=== PATIENT | male | born 1995 ===

== ENCOUNTER 2017-10-02 10:03 | Emergency (ER) | payer OTHER ==
[2017-10-02 10:10] VITALS: BP 117/74; PULSE 50; RESP 16; TEMP 97.5; O2SAT 99
--- NOTE | 2017-10-02 10:40 | C.PDOC ---
History Of Present Illness 22 y/o M c no PMHx p/w back pain x 3 months. Pain is constant, across lower back , worse when sitting for a long time, sometimes severe, nonradiating. Denies fever, chills, weight loss, sweating, cough, nausea, vomiting, numbness, weakness, urinary or bowel incontinence or retention, recent surgery or procedures. Time Seen by Provider: 10/02/17 10:11 Chief Complaint (Nursing): Back Pain Past Medical History Vital Signs: Last Vital Signs Temp 97.5 F L 10/02/17 10:06 Pulse 50 L 10/02/17 10:06 Resp 16 10/02/17 10:06 BP 117/74 10/02/17 10:06 Pulse Ox 99 10/02/17 10:43 Family History: States: No Known Family Hx - Social History Hx Alcohol Use: No Hx Substance Use: No - Immunization History Hx Tetanus Toxoid Vaccination: No Hx Influenza Vaccination: No Hx Pneumococcal Vaccination: No Review Of Systems Except As Marked, All Systems Reviewed And Found Negative. Constitutional: Negative for: Fever Respiratory: Negative for: Shortness of Breath Physical Exam - Physical Exam Additional Physical Exam Comments: Gen: NAD Head: NC/AT Eyes: No scleral icterus ENT: MMM Neck: No midline tenderness, FROM CV: Radial pulses 2+ bilaterally Lungs: CTA b/l Abd: Soft, NT Back: Lumbar midline and bilateral tenderness without deformity Skin: No rash Neuro: Alert. Moves all extremities 5/5 strength, sensation to light touch intact in bilateral lower legs. ED Course And Treatment O2 Sat by Pulse Oximetry: 99 - Other Rad No standard instances Interpretation: Accession No. : [id number]. Patient Name / ID : IVET REYNOLDS DANIELLA / [id number]. Exam Date : 10/02/2017 10:46:00 ( Approved ). Study Comment : Sex / Age : M / 22Y. Creator : Maria Teresa Thompson MD. Dictator : Maria Teresa Thompson MD. Ed Special Education Teacher : Intelligence Operations Specialist : Maria Teresa Thompson MD. Approver2 : Report Date : 10/02/2017 10:54:52. My Comment : . PROCEDURE: Radiographs of the Lumbar Spine. HISTORY: back pain. COMPARISON: No prior. FINDINGS: BONES: Normal alignment. No listhesis. No fracture. DISC SPACES: Unremarkable. OTHER FINDINGS: None. IMPRESSION: No evidence of acute pathology. Medical Decision Making Medical Decision Making: Used christmas bell ringer [id number]. Patient instructed to f/u with clinic, possible MRI for this pain of 3 months. Disposition - Disposition Referrals: [facility] [Outside] Disposition: HOME/ ROUTINE Disposition Time: 10:57 Condition: STABLE Prescriptions: Famotidine [Pepcid] 1 tab PO BID #14 tab Ibuprofen [Motrin] 600 mg PO Q6 #25 tab Instructions: Low Back Pain (DC) Forms: [employer] ([place]an) Print Language: TELUGU - Clinical Impression Clinical Impression: Low back pain
--- NOTE | 2017-10-02 10:56 | RAD ---
PROCEDURE: Radiographs of the Lumbar Spine. HISTORY: back pain COMPARISON: No prior. FINDINGS: BONES: Normal alignment. No listhesis. No fracture. DISC SPACES: Unremarkable. OTHER FINDINGS: None. IMPRESSION: No evidence of acute pathology.
== END 2017-10-02 11:05 | disposition home or self-care (01) ==
LOC: C.ER 10:03
DX: M54.5 Low back pain (principal)
CPT/HCPCS: 72100; 96372; 99284; J1885

== ENCOUNTER 2017-12-08 10:52 | Emergency (ER) | payer OTHER ==
[2017-12-08 11:04] VITALS: BMI 23.2
--- NOTE | 2017-12-08 11:59 | C.PDOC ---
History Of Present Illness 22 yo male come in for evaluation of Left sided lower back pain intermittent " since March 2017". Pt sts, pain was localized and now radiating down to Left leg, associated intermittent tingling lateral left thigh. Otherwise, pt denies known direct trauma or injury, fever, chills, abd. pain, V/D, UTI sx, saddle anesthesia, incontinence, denies weakness, sensory or vascular deficits to B/L LEs. Ambulate to Ed for evaluation, not in any apparent distress. Time Seen by Provider: 12/08/17 11:17 Chief Complaint (Nursing): Back Pain History Per: Patient Past Medical History Reviewed: Historical Data, Nursing Documentation, Vital Signs Vital Signs: Last Vital Signs Temp 97.8 F 12/08/17 11:04 Pulse 55 L 12/08/17 11:04 Resp 18 12/08/17 11:04 BP 126/69 12/08/17 11:04 Pulse Ox 100 12/08/17 11:04 - Medical History PMH: No Chronic Diseases Surgical History: No Surg Hx Family History: States: No Known Family Hx - Social History Hx Alcohol Use: No Hx Substance Use: No - Immunization History Hx Tetanus Toxoid Vaccination: No Hx Influenza Vaccination: No Hx Pneumococcal Vaccination: No Review Of Systems Except As Marked, All Systems Reviewed And Found Negative. Constitutional: Negative for: Fever, Chills ENT: Negative for: Nose Discharge, Throat Pain, Throat Swelling Respiratory: Negative for: Cough Gastrointestinal: Negative for: Vomiting, Abdominal Pain, Diarrhea Genitourinary: Negative for: Dysuria, Frequency, Incontinence Musculoskeletal: Positive for: Back Pain. Negative for: Neck Pain Skin: Negative for: Rash Neurological: Negative for: Weakness, Numbness, Altered Mental Status, Headache , Dizziness Physical Exam - Physical Exam Appears: Well, Non-toxic, No Acute Distress Skin: Normal Color, Warm, Dry, No Rash Head: Normacephalic Eye(s): bilateral: PERRL Nose: No Discharge Oral Mucosa: Moist Throat: No Erythema, No Drooling Neck: Trachea Midline, No Midline Cervical Tenderness, No Paracervical Tenderness, No Step Off Deformity, Supple Cardiovascular: Rhythm Regular, No Murmur, No JVD Respiratory: No Decreased Breath Sounds, No Accessory Muscle Use, No Stridor, No Wheezing Gastrointestinal/Abdominal: Soft, No Tenderness, No Distention, No Guarding Back: No CVA Tenderness, No Vertebral Tenderness, Decreased ROM (L-spine due to pain), Muscle Spasm (lumbar paraspinal), Paraspinal Tenderness (Left sided lumbar ) Extremity: Normal ROM, No Deformity, No Swelling Neurological/Psych: Oriented x3, Normal Speech, Normal Motor, Normal Sensation, Normal Reflexes ED Course And Treatment O2 Sat by Pulse Oximetry: 100 Pulse Ox Interpretation: Normal Progress Note: On re-evaluation, pt is afebrile, hemodynamicaly stable. Non- toxic. Ambulatory in Ed with stable gait. ENT: no acute findings. Neck: Supple , (-) meningeal sign. Lungs: CTA B/L, BS equal B/L. Abd: benign, (-) guarding , (-) rebound, (-) RLQ tenderness. Back: (-) CVA tenderness. Neurologicaly intact. Pt has clinical findings c/w Left sided lumbar radiculopathy. Pt advised on course of ds. REf. to f/u with PMD in 2-3 days for re-eval. and MRI of L-spine. returhn to Ed if any worsening or new changes. Disposition Counseled Patient/Family Regarding: Diagnosis, Need For Followup, Rx Given - Disposition Referrals: [facility] at [facility] [Outside] Disposition: HOME/ ROUTINE Disposition Time: 11:57 Condition: STABLE Additional Instructions: Back brace Take medication as prescribed Follow up with PMD in 3-4 days for further evaluation, MRI of Lumbar spine and further treatment as need return if any worsening or new changes. Prescriptions: Gabapentin [Neurontin] 300 mg PO HS #10 cap Methocarbamol [Robaxin] 500 mg PO TID #14 tab Prednisone [Deltasone] 40 mg PO DAILY #6 tablet traMADol [Ultram] 50 mg PO TID #7 tab Instructions: Radiculopathy (DC), Herniated Disc (DC) Print Language: MEXICAN - Clinical Impression Clinical Impression: Lumbar radiculopathy
[2017-12-08 12:19] VITALS: BP 132/81; PULSE 59; RESP 20; TEMP 98.3; O2SAT 99
== END 2017-12-08 12:19 | disposition home or self-care (01) ==
LOC: C.ER 10:52
DX: M54.16 Radiculopathy, lumbar region (principal)